=== PATIENT | female | born 2005 | race Caucasian/White ===

== ENCOUNTER 2024-04-11 15:00 | Emergency (ER) | payer SELFPAY ==
[~2024-04-11] VITALS: Ht 157.5 cm; Wt 72.0 kg
[2024-04-11 15:07] VITALS: BP 115/68; PULSE 110; RESP 16; TEMP 98.1; O2SAT 100
[2024-04-11] MEDS ORDERED: IBUP-2028 MT (16:49)
[2024-04-11] MEDS: KETOROLAC 15MG/ML VIAL IM ONE (17:03)
== END 2024-04-11 17:51 | disposition home or self-care (01) ==
LOC: ER 15:00
DX: S93.491A Sprain of other ligament of right ankle, initial encounter (principal); I95.9 Hypotension, unspecified; X58.XXXA Exposure to other specified factors, initial encounter; Y93.89 Activity, other specified; Y92.89 Other specified places as the place of occurrence of the external cause; Y99.8 Other external cause status
CPT/HCPCS: 81025; 73590; 73610; 73630; 96372; 99284; J1885; Z7610

== ENCOUNTER 2024-05-05 21:33 | Emergency (ER) | payer SELFPAY ==
[~2024-05-05] VITALS: Ht 162.6 cm; Wt 73.0 kg
[~2024-05-05 21:33] MED LIST: IBUP-2028 MT
[2024-05-05 22:43] VITALS: TEMP 98.4; O2SAT 100
[2024-05-06] MEDS ORDERED: IBUP-2029 MT (00:02)
[2024-05-06 02:09] VITALS: BP 119/81; PULSE 90; RESP 20
[2024-05-06] MEDS: IBUPROFEN 800MG TABLET PO ONE (02:09)
== END 2024-05-06 00:01 | disposition home or self-care (01) ==
LOC: ER 21:33
DX: S83.8X1A Sprain of other specified parts of right knee, initial encounter (principal); M25.561 Pain in right knee; I95.9 Hypotension, unspecified; W18.39XA Other fall on same level, initial encounter; Y93.89 Activity, other specified; Y92.89 Other specified places as the place of occurrence of the external cause; Y99.8 Other external cause status
CPT/HCPCS: 73610; 99283